=== PATIENT | male | born 1980 | race African-American/Black ===

== ENCOUNTER 2018-06-20 09:34 | Emergency (ER) | payer MEDICAID ==
[2018-06-20 09:46] VITALS: BP 147/114
--- NOTE | 2018-06-20 10:00 | EDPHY ---
H & P Time Seen by Provider: 06/20/18 09:48 HPI/ROS: CLINICAL IMPRESSION: Left trapezius strain ASSESSMENT/PLAN: 37-year-old male presents to the emergency department with 3 days of atraumatic left lateral neck and trapezius pain after attempting to put lotion on in this area. Pain is exacerbated by range of motion of the neck and shoulder. Pain is reproducible to palpation along the left trapezius, rhomboid and paraspinal muscles. He reports no chest pain, shortness of breath, headache , dizziness, vertigo, nausea, vomiting and upper extremity paresthesias or weakness. He has a nonfocal upper extremity neurovascular exam. Vital signs stable, no meningismus findings. I suspect patient has a musculoskeletal strain. He was given a muscle relaxer, PCP referrals, home care discussed, warning signs return to ED sooner outlined and discharge. DIFFERENTIAL DX: Differential diagnosis includes but not limited to muscle strain, ACS, subclavian thrombus, brachial plexopathy. CHIEF COMPLAINT: Left shoulder and lateral neck pain HPI: 37-year-old otherwise healthy male presents to the emergency department with atraumatic left shoulder and lateral neck pain after he pulled a muscle trying to put lotion on this area 3 days ago. He has been trying 600 mg ibuprofen every 6-8 hours without significant improvement. He has been trying ice and heat. No reported neck or shoulder trauma. No chest pain, shortness of breath , upper extremity numbness or weakness. No fevers or chills. No headache, dizziness, vertigo. No history of chiropractic adjustment or deep tissue massage. He is otherwise healthy, takes no other medications, and reports no cardiac history or other medical conditions. He moved here from [place] 6 months ago and does not yet have a primary care doctor. 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 Neurological: No sensory loss or weakness. PHYSICAL EXAM: General Appearance: Alert, oriented, appropriate for age, cooperative, NAD, well hydrated, non-toxic appearing, VSS, no hypoxia. Neurological: Alert and oriented x 3, normal sensation and strength of extremities Skin: Warm, dry, no rashes, no nodules on palpation. Musculoskeletal: Reproducible pain to palpation of the paraspinal muscles of the left neck extending into the trapezius and rhomboid regions. This is exacerbated by range of motion of the neck which is intact. No meningismus findings. Exacerbated by range of motion of the arm which is also intact. Strength 5/5. Distal neurovascular exam intact. Cardiac: Regular rate and rhythm Respiratory: Lungs are clear to auscultation bilaterally, no wheezing rhonchi or rales MEDICAL DECISION MAKING: Patient was seen independently.Secondary supervising physician at time of evaluation was Dr. Obregon. Diagnosis: Left trapezius strain. New, requires workup Summary: See assessment and plan for summary of ED visit Patient Progress improved . Smoking Status: Current every day smoker Constitutional: Initial Vital Signs Temperature (C) 36.6 C 06/20/18 09:43 Heart Rate 87 06/20/18 09:43 Respiratory Rate 17 06/20/18 09:43 Blood Pressure 147/114 H 06/20/18 09:43 O2 Sat (%) 97 06/20/18 09:43 O2 Delivery Mode Room Air Allergies/Adverse Reactions: No Known Allergies Allergy (Unverified 06/20/18 09:43) Home Medications: Medication Instructions Recorded Cyclobenzaprine [Flexeril] 10 mg PO TID #15 tab 06/20/18 Ibuprofen 06/20/18 MDM/Departure - Depart Disposition: Home, Routine, Self-Care Clinical Impression: Trapezius muscle strain Qualifiers: Encounter type: initial encounter Laterality: left Qualified Code(s): S46.812A - Strain of other muscles, fascia and tendons at shoulder and upper arm level, left arm, initial encounter Condition: Good Instructions: Muscle Strain (ED) Additional Instructions: DISCHARGE INSTRUCTIONS FROM YOUR DOCTOR Thank you for visiting our emergency department today. Please keep in mind that discharge from the emergency department does not mean that there is nothing wrong - it simply means that we have not identified an emergency condition that requires further evaluation or treatment in the hospital. You should always plan to follow up with primary care for re-evaluation of your condition in the next 2-3 days. If you have been referred to a specialist, please call as soon as possible (today or tomorrow) to schedule your follow up appointment at the appropriate time. It appears to have suffered a muscle spasm of the trapezius and paraspinal muscles on the left. We gave you a prescription for muscle relaxers to try. Do not drive or drink while taking these. A work note was given for today. Continue to use ibuprofen as needed. Apply ice or heat. Please make a follow- up appointment with primary care, a referral was given. Please return to the emergency department immediately for persisting pain, weakness or numbness to the arm, chest pain or shortness of breath, severe headache, dizziness or vomiting, or any other concerns. People present with illnesses and injuries in different ways, and it is always possible that we have missed something. You may always return for re-evaluation if symptoms worsen or if they are not improving or if you develop new/different symptoms. Again, thank you for choosing our emergency department. We hope that you feel better. Prescriptions: Cyclobenzaprine [Flexeril] 10 mg PO TID #15 tab Referrals: NONE *PRIMARY CARE P,. [Primary Care Provider] - As per Instructions Juan Will DO [Medical Doctor] - As per Instructions [facility],. [Clinic] - As per Instructions
== END 2018-06-20 10:06 | disposition home or self-care (01) ==
DX: S46.812A Strain of other muscles, fascia and tendons at shoulder and upper arm level, left arm, initial encounter (principal)

== ENCOUNTER 2018-07-09 19:34 | Emergency (ER) | payer MEDICAID ==
[2018-07-09 19:46] VITALS: BP 126/86
--- NOTE | 2018-07-09 19:56 | EDPHY ---
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 No pain. No scrotal pain. No urinary abnormality. No back or flank pain. No fever or chills. PHYSICAL EXAM (Prior to examination, patient consented to physical exam, hands were washed and my usual and customary physical exam procedures followed) 1) GENERAL: Well-developed, well-nourished, alert and oriented. Appears to be in no acute distress. 2) HEAD: Normocephalic 3) HEENT: sclera anicteric 4) LUNGS: Breathing comfortably. [5) : Normal male external genitalia. Excoriated erythema to the left inguinal region consistent with tinea cruris. No vesicles. No pain. There is no evidence of cellulitis, no evidence of super infection, no evidence of Ernesto's gangrene. No raised lesions. (Hailey Dorman) Constitutional: Initial Vital Signs Temperature (C) 36.5 C 07/09/18 19:42 Heart Rate 92 07/09/18 19:42 Respiratory Rate 18 07/09/18 19:42 Blood Pressure 126/86 H 07/09/18 19:42 O2 Sat (%) 97 07/09/18 19:42 Allergies/Adverse Reactions: No Known Allergies Allergy (Unverified 06/20/18 09:43) Home Medications: Medication Instructions Recorded Nystatin [Mycostatin Cream (RX)] 1 holly TOP BID #45 g 07/09/18 MDM/Departure - [facility] ED Course/Re-evaluation: Exam findings consistent with tinea cruris. No evidence of cellulitis or Ernesto's gangrene. Prescription for topical antifungal. Usual and customary wound precautions instructions provided. Care of patient under supervision of secondary supervising physician Dr Lopez (Hailey Dorman) The patient was evaluated and managed by the Physician [employer] Knitter. My co- signature indicates that I have reviewed this chart and I agree with the findings and plan of care as documented. I am the secondary supervising physician. (Evangelina Lopez) - Depart Disposition: Home, Routine, Self-Care Clinical Impression: Tinea cruris Condition: Good Instructions: Jock Itch (ED) Additional Instructions: Return to the ER if you develop redness, pain or any other symptoms that concern you Prescriptions: Nystatin [Mycostatin Cream (RX)] 1 holly TOP BID #45 g Referrals: [facility],. [Clinic] - As per Instructions
== END 2018-07-09 20:08 | disposition home or self-care (01) ==
DX: B35.6 Tinea cruris (principal)

== ENCOUNTER 2018-11-07 06:24 | Emergency (ER) | payer MEDICAID ==
[2018-11-07 06:29] VITALS: BP 148/95
--- NOTE | 2018-11-07 06:41 | EDPHY ---
H & P Stated Complaint: BRIGHT RED STOOL, CONSTIPATION Time Seen by Provider: 11/07/18 06:32 HPI/ROS: Chief Complaint: Constipation, blood per rectum HPI: 38-year-old male who states he has a history of irritable bowel and normally has loose stools. Patient got up this morning and had a very firm stool which was brown. He did notice some blood in the toilet water after he had his bowel movement. This only occurred once. He became alarmed with seeing the blood. He has never had blood in his stool in the past. No dark tarry stools. No abdominal pain. No lightheadedness or fainting. No history of hemorrhoids. Has not noticed any new bumps or lesions. Otherwise has been in his usual state of health. ROS: 10 systems were reviewed and were negative except those elements noted in the HPI. PMH: Irritable bowel Social History: No smoking, no alcohol, no recreational drug use Family History: non-contributory Physical Exam: Gen: Awake, Alert, No Distress HEENT: Nose: no rhinorrhea Eyes: PERRLA, EOMI Mouth: Moist mucosa Neck: Supple, no JVD Chest: nontender, lungs clear to auscultation Heart: S1, S2 normal, no murmur Abd: Soft, non-tender, no guarding Rectal: Patient has brown stool. There are no hemorrhoids noted. There is a fissure noted. No active bleeding. Back: no CVA tenderness, no midline tenderness Ext: no edema, non-tender Skin: no rash Neuro: CN II-XII intact, Sensation grossly intact, Strength 5/5 in bilateral upper and lower extremities - Personal History Current Tetanus Diphtheria and Acellular Pertussis (TDAP): Yes - Medical/Surgical History Hx Asthma: No Hx Chronic Respiratory Disease: No Hx Diabetes: No Hx Cardiac Disease: No Hx Renal Disease: No Hx Cirrhosis: No Hx Alcoholism: No Hx HIV/AIDS: No Hx Splenectomy or Spleen Trauma: No Other PMH: EPILEPSY - Social History Smoking Status: Heavy smoker Constitutional: Initial Vital Signs Temperature (C) 36.7 C 11/07/18 06:26 Heart Rate 98 11/07/18 06:26 Respiratory Rate 16 11/07/18 06:26 Blood Pressure 148/95 H 11/07/18 06:26 O2 Sat (%) 93 11/07/18 06:26 O2 Delivery Mode Room Air Allergies/Adverse Reactions: No Known Allergies Allergy (Verified 11/07/18 06:29) Home Medications: Medication Instructions Recorded Nystatin [Mycostatin Cream (RX)] 1 holly TOP BID #45 g 07/09/18 Medical Decision Making ED Course/Re-evaluation: Healthy 38-year-old male with single episode of blood per rectum this morning with constipation. He does have a small anal fissure. No masses noted. Brown stool. Vital signs are normal. He has been reassured. Will give him instructions for constipation, anal fissure, referral to the [facility] for outpatient follow-up. Departure - Departure Disposition: Home, Routine, Self-Care Clinical Impression: Anal fissure, Constipation Condition: Good Instructions: Anal Fissure (ED), Rectal Bleeding (ED) Additional Instructions: Increase the fiber in your diet, either through increasing high-fiber fruits and vegetables or adding a fiber supplement like Metamucil. Make sure to drink plenty of water every day. You may take MiraLax daily according to package instructions. If you feel constipated drink 1/2 bottle of magnesium citrate. Wait 1-2 hours. If you do not have a bowel movement after that time drink the 2nd half of the bottle. If you continues to be constipated you may use a Fleet's enema, available over- the-counter. Referrals: [facility],. [Clinic] - As per Instructions
== END 2018-11-07 06:50 | disposition home or self-care (01) ==
DX: K60.2 Anal fissure, unspecified (principal); K59.00 Constipation, unspecified